=== PATIENT | female | born 1980 | race Caucasian/White ===

== ENCOUNTER → 2018-03-25 | Outpatient (CLI) | payer OTHER ==
--- NOTE | 2018-03-25 11:14 | RADIOLOGY REPORT (SQ) ---
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 TECHNIQUE: Noncontrasted images through the facial bones and orbits windowed for bone and soft tissu e. Additional coronal and sagittal reconstructed images reviewed. All images stored on PACS. All CT scanners at this facility use dose modulation, iterative reconstruction, and/or weight based d osing when appropriate to reduce radiation dose to as low as reasonably achievable (ALARA). [facility]: Dose Right [facility]: CareDose [facility]: Dose Right [facility]: Teradose 4D [facility]: [employer] RADIATION DOSE: 45.4 mGy. LIMITATIONS: None. FINDINGS: FACIAL BONES: No fracture or bone lesion. ORBITS: Intact. No fracture. Symmetric intact globes and retroorbital soft tissues. PARANASAL SINUSES: Mucous membrane thickening occluding the left maxillary outlet on coronal images 2 1-24. Mild mucous membrane thickening left maxillary sinus. Paranasal sinuses are otherwise well in flated and clear. Mastoid air cells and middle ear cavities are clear SOFT TISSUES: No mass or edema. INFERIOR BRAIN: Limited view. No acute findings. OTHER: Imaging of the mandible and maxilla demonstrates no dentigerous cyst or periapical tooth root lucency worrisome for abscess IMPRESSION: Mucous membrane thickening left maxillary outlet. Mucous membrane thickening left maxil yesy sinus. No worrisome mandible lesions or maxilla lesions. TECHNICAL DOCUMENTATION: JOB ID: [id number] Quality ID # [id number]: Final reports with documentation of one or more dose reduction techniques (e.g., Au tomated exposure control, adjustment of the mA and/or kV according to patient size, use of iterative reconstruction technique) 2010 [employer]- All Rights Reserved Reading location - IP/workstation name: [facility]
== END ==
LOC: RAD 10:29
PROVIDERS: ATTEND Otolaryngology
DX: K09.0 Developmental odontogenic cysts (principal)
CPT/HCPCS: 70486

== ENCOUNTER 2018-04-25 07:36 | Day surgery (SDC) | payer OTHER ==
[~2018-04-25 07:36] MED LIST: CARBOXYMETHYLCELLULOSE SOD 0.5% 0.4 ML DROPERETTE ONE; CHLORHEXIDINE GLUCONATE 0.12% ORAL RINSE 15 ML UDC PO PRN; CLINDAMYCIN 900 MG/D5W RTU 900 MG/50 ML RTUPB IV PRN; DEXAMETHASONE SOD PHOS INJ 10 MG/1 ML VIAL ONE; DEXMEDETOMIDINE INJ 80 MCG/20 ML VIAL IV ONE; DIPHENHYDRAMINE HCL 50 MG/ML VIAL ONE; FENTANYL CITRATE INJ/PF 100 MCG/2 ML AMPUL ONE; MIDAZOLAM 2 MG/2 ML INJ ONE; ONDANSETRON HCL INJ/PF 4 MG/2 ML SDV ONE; PROPOFOL INJ 200 MG/20 ML VIAL IV ONE; ROCURONIUM BROMIDE INJ 50 MG/5 ML VIAL IV ONE; SUCCINYLCHOLINE CHLORIDE INJ 200 MG/10 ML VIAL ONE
[2018-04-25] MEDS: CHLORHEXIDINE GLUCONATE 0.12% ORAL RINSE 15 ML UDC ONE ×2 (07:59→09:15)
[2018-04-25] MEDS ORDERED: OXYMETAZOLINE HCL 0.05% NASAL SPRAY 15 ML BOTTLE ONE (08:38)
[2018-04-25] MEDS ORDERED: BUPIVACAINE HCL 0.5%-EPI 1:200000 INJ/PF 30 ML VIAL ONE (08:38)
[2018-04-25] MEDS ORDERED: BUPIVACAINE HCL 0.5%/EPI 1:200000 INJ 1.8 ML CARTRIDGE ONE (08:38)
[2018-04-25] MEDS ORDERED: LIDOCAINE 2%/EPINEPHRINE INJ 1.7 ML CARTRIDGE ONE (08:48)
[2018-04-25] MEDS ORDERED: CHLORHEXIDINE GLUCONATE 0.12% ORAL RINSE 15 ML UDC ONE (09:26)
--- NOTE | 2018-04-25 11:08 | SURGICARE OPERATIVE REPORT E ---
[facility] NAME: CARMINE CARRIZALES AGE: 37Y DATE OF SURGERY: 04/25/2018 ROOM: HISTORY: This 37-year-old female presents with a right anterior maxillary mass. A CT scan of the face was performed. The mass was not osseous in consistency and it did not appear to invade the maxillary sinus. The patient presents for excision of that right anterior maxillary mass. Informed consent was obtained from the patient. PREOPERATIVE DIAGNOSIS: Right anterior maxillary mass. POSTOPERATIVE DIAGNOSIS: Right anterior maxillary mass. PROCEDURE: Excision of right anterior maxillary mass using a Dempsey-Sanjay approach. SURGEON: KELSI DAMON MD ANESTHESIA: General via endotracheal intubation. DESCRIPTION OF PROCEDURE: After receiving informed consent from the patient, she was taken to the operating room and placed supine on the operating table. After successful induction and intubation by Anesthesia, the oral cavity was irrigated with Peridex mouthwash and then the right maxillary gingivobuccal and gingivolabial sulcus was injected with 2% Xylocaine with 1:100,000 epinephrine. The patient was then prepped and draped in a sterile fashion. Using needlepoint Bovie electrocautery the incision was made in the gingivobuccal and gingivolabial sulcus overlying the mass. Next, using a [place] elevator and a [place] elevator, the soft tissue was carefully dissected from the mass. The soft tissue was also dissected from the anterior maxilla. Both blunt and sharp dissection was also used to free the mass from the surrounding tissue. Once the mass was free it was found to be eroding into the anterior maxilla. It appeared to be more of a pressure-type erosion. It had smooth borders and the mass was easily removed. It did not appear to be infiltrative. The place of that erosion did not extend into the soft tissue of the maxillary sinus. There was an osseous consistency around the totality of that erosion. Once the mass was removed hemostasis was obtained. The portion of that bony erosion was inspected and again no evidence of the mass was found. The mass was sent for permanent histopathological analysis. Next, the wound was irrigated with Peridex and saline and was closed using running 3-0 chromic suture. After the closure the mouth was irrigated with Peridex medicated mouthwash. The patient was then given back to Anesthesia, who successfully extubated the patient without any complications. The estimated blood loss was about 10 mL, fluids 300 mL crystalloid. The patient was then transferred to the postanesthesia care unit in stable condition, spontaneous respirations, no complications. DICTATING PHYSICIAN: KELSI DAMON M.D. [id number] PHY#: [id number] ID: [id number] JOB#: [id number] ACCT: [id number] cc:KELSI DAMON MD > [facility]
== END 2018-04-25 11:07 | disposition home or self-care (01) ==
LOC: SC 07:36
PROVIDERS: ATTEND Otolaryngology
DX: K09.0 Developmental odontogenic cysts (principal); R22.0 Localized swelling, mass and lump, head; Z79.899 Other long term (current) drug therapy; I10 Essential (primary) hypertension; E78.5 Hyperlipidemia, unspecified; Z88.0 Allergy status to penicillin; F17.210 Nicotine dependence, cigarettes, uncomplicated
CPT/HCPCS: 88305 ×2; 88312 ×2; 41825; J2250; J3490 ×4; J1200; J3010; J0330; J2405; J2704; J1100; 190